=== PATIENT | male | born 1980 | race Caucasian/White ===

== ENCOUNTER 2017-10-14 07:30 | Emergency (ER) | payer OTHER ==
[~2017-10-14] VITALS: Ht 172.7 cm; Wt 68.0 kg
[2017-10-14 07:32] VITALS: Ht 172.7 cm; Wt 68.0 kg
[2017-10-14 10:43] VITALS: BP 103/55
== END 2017-10-14 10:44 | disposition home or self-care (01) ==
LOC: ED 07:30
DX: S39.012A Strain of muscle, fascia and tendon of lower back, initial encounter (principal); G80.9 Cerebral palsy, unspecified; X50.1XXA Overexertion from prolonged static or awkward postures, initial encounter; Y93.89 Activity, other specified; Y92.89 Other specified places as the place of occurrence of the external cause; Y99.8 Other external cause status
CPT/HCPCS: J1100; J1885